=== PATIENT | female | born 1965 | race Caucasian/White ===

== ENCOUNTER 2022-04-14 09:41 | Observation (INO) ==
--- NOTE | 2022-03-09 16:17 | PAT Medication Instructions ---
Medication Instructions Date of Service March 09, 2022 Home Medications naproxen 250 mg tablet 250 mg PO BID PRN levothyroxine 50 mcg capsule 50 mcg PO QAM celecoxib 100 mg capsule (Celebrex) 200 mg PO QAM losartan 25 mg tablet 25 mg PO QAM metoprolol succinate 50 mg tablet,extended release 24 hr 50 mg PO QAM multivitamin 1 tab PO QAM ASK your surgeon for instructions naproxen 250 mg tablet 250 mg PO BID PRN celecoxib 100 mg capsule (Celebrex) 200 mg PO QAM DO NOT take the morning of surgery losartan 25 mg tablet 25 mg PO QAM multivitamin 1 tab PO QAM Take morning of surgery With a small sip of water, OTHERWISE NOTHING TO EAT OR DRINK AFTER MIDNIGHT: levothyroxine 50 mcg capsule 50 mcg PO QAM metoprolol succinate 50 mg tablet,extended release 24 hr 50 mg PO QAM Other Notes If you have any questions please call us at [phone] or [phone] or [phone] or [phone]
--- NOTE | 2022-03-18 10:39 | Anesthesiology Consultation ---
Date of Service March 18, 2022 Assessment & Plan (1) Encounter for pre-operative examination: - palpitation history discussed with Dr. Motley who advised cardiology pre-op evaluation prior to surgery. Surgeon's office and pt made aware. - PONV: scop patch Rx am DOS. - Outpatient joint assessment: Patient is currently scheduled for inpatient pathway. If re-evaluated pending system levels during current pandemic/surgeon requests outpatient pathway, patient is not acceptable candidate for outpatient joint program from anesthesia standpoint. - anesthesia record TKAs: Right 11/14/17: GA by pt request, LMA#4 + PNB. Left 18: SAB L4-L5 1 attempt + PNB. Pt denies any current or previous concerns with neuraxial anesthesia. Chart Review Chart Review: Pending: Refer to Additional Notes / Consult section and Patient seen in Pre Admission Testing Teaching & Discussion Pre-Anesthesia Teaching/Discussion Notes: Instructed NPO after midnight before surgery, except medications with 15 cc of water. Medication instructions provided according to the PAT guidelines. History Surgery Operation Date: 04/14/22 07:10 Proposed Procedures p Right Total Knee Revision - Oneil Covarrubias, Height/Weight Height: 5 ft 5 in Weight: 108.7 kg Allergies Allergy/AdvReac Type Severity Reaction Status Date / Time adhesive Allergy Mild REDNESS Verified 03/06/22 09:53 WITH SOME TAPE hyaluronic acid Allergy Mild Rash Verified 03/06/22 09:53 latex Allergy Mild Rash Verified 03/06/22 09:53 nickel AdvReac Intermediate skin Verified 03/06/22 10:17 irritation CELESTINE Allergy Severe SKIN Uncoded 03/06/22 10:17 SENSITIVITY/REDNESS AND IRRITATED Medications Home Medications Medication Instructions Recorded Confirmed Last Taken naproxen 250 mg tablet 250 mg PO BID PRN Pain 02/10/18 03/06/22 Unknown levothyroxine 50 mcg capsule 50 mcg PO QAM 07/31/20 03/06/22 11/25/21 05:15 celecoxib 100 mg capsule (Celebrex) 200 mg PO QAM 03/04/21 03/06/22 11/23/21 08:30 losartan 25 mg tablet 25 mg PO QAM 11/20/21 03/06/22 11/24/21 08:30 metoprolol succinate 50 mg 50 mg PO QAM 11/20/21 03/06/22 11/25/21 05:15 tablet,extended release 24 hr multivitamin 1 tab PO QAM 11/20/21 03/06/22 11/24/21 08:30 Past Medical History Medical History (Updated 03/18/22 @ 15:33 by Trina Hare PA-C) Chronic back pain follows with care program resident and takes celebrex Emphysema lung Per low dose lung cancer screening CT scan- pt chronic smoker Flor's disease Currently hypothyroid- on levothyroxine Hx of hepatitis HEPATITIS C>treated 10/2017 No current issues at this time Hypertension usual reading~150/90s per pt Sleep apnea CPAP-compliant Patient denies h/o stroke, seizures, heart attack, heart failure, DM, blood clots or blood transfusions. Exercise / Class Metabolic Activity II 4-5 Yardwork/Stairs/Walk up hill (denies CP or SOB with 1 FOS) Past Family History Family History Father Family history of diabetes mellitus Brother Family history of diabetes mellitus Daughter Family history of diabetes mellitus Other No family history of adverse response to anesthesia Past Surgical History Surgical History (Updated 03/18/22 @ 10:57 by Trina Hare PA-C) History of bilateral tubal ligation History of section X2 History of cholecystectomy 11/25/21: Grade 1 view, Edgar 2, ETT 7. History of colonoscopy History of hysterectomy History of nasal septoplasty X 2 History of tooth extraction History of total knee replacement Right 11/14/17: GA by pt request, LMA#4 + PNB. Left 03/19.18: SAB L4-L5 1 attempt + PNB. History of total shoulder replacement RIGHT 03/28/21 LMA#4 + PNB. Nausea and vomiting after administration of anesthetic agent requires scop patch per pt, denies adverse effects Past Anesthesia History No Hx of Anesthesia Complications and No Family Hx of Anesthesia Complications History of PONV History of PONV (requires scop patch, denies adverse effects with patch) and Hx of Motion Sickness Social History Smoking Status: Former smoker tobacco type: cigarettes Do You Dip or Chew Tobacco: No Smoking End Date: 09/29/21 Hx Alcohol Use: No Hx Substance Use: No Review of Systems Rare palpitations at rest, denies association to caffeine or stress; ongoing x several yrs; associated with shortness of breath; denies associated dizziness, lightheadedness and chest discomfort. Patient denies chest pain, shortness of breath, dyspnea on exertion, reflux, fever, chills, cough, wheezing, or palpitations. Physical Exam Vital Signs Vitals BP 154/94 (Pt states this is typical range, PCP aware) P 70 TEMP 98.2 SP02 96% on RA RESP 17 Physical Full cervical extension range of motion without pain TMD 3.5 finger breadths Mallampati Score 3 Dentition: intact, bridge upper; denies chipped or loose teeth, caps/crowns Lungs: normal respiratory effort. Clear throughout to auscultation, no adventitious breath sounds Cardiac: regular rate and rhythm, no murmurs noted Carotid arteries: negative bruit bilat Lab Results Anesthesia Preop Results Results Anesthesia Widget: WBC 7.33 K/ul (4.8-10.8) 03/18/22 Hgb 14.2 g/dl (12.0-16.0) 03/18/22 Hct 42.9 % (34.1-44.9) 03/18/22 Plt 201 K/uL (130-400) 03/18/22 Na 137 mmol/L (136-145) 03/18/22 K 4.9 mmol/L (3.5-5.1) 03/18/22 Cl 102 mmol/L (98-107) 03/18/22 CO2 29 mmol/L (21-32) 03/18/22 BUN 18 mg/dl (6-23) 03/18/22 Creat 0.77 mg/dl (0.6-1.2) 03/18/22 Glucose Level 93 mg/dl (70-99(Fasting)) 03/18/22 PT 10.8 Seconds (9.0-12.0) 03/18/22 PTT 29.7 Seconds (21.0-31.0) 03/18/22 INR 1.0 (0.9-1.1) 03/18/22 Blood Type O Negative 03/18/22 Antibody Screen NEGATIVE 03/18/22 Testing Electrocardiogram Date: 11/13/21 NSR, rate 64 bpm Other Testing Abdomen pelvis CT 12/07/21 1. Fluid-filled loops of small bowel throughout the abdomen and pelvis most characteristic of an ileus versus gastroenteritis. No evidence for obstruction. 2. No other evidence for acute intra-abdominal or pelvic abnormality. CT chest low dose 10/02/21 Few tiny sub 5 mm pulmonary nodules, unchanged Mild emphysema COVID-19 Risk Screen Screening Information COVID-19 Screen Date: 03/19/22 Exposure 21 Days Family/Household +COVID Last 21 Days: No Exposure 10 Days Any COVID Exposure Last 10 Days: No Symptoms Last 10 Days Experienced COVID Sx Last 10 Days: No + COVID 0-90 Days COVID + in Last 0-90 Days: No
--- NOTE | 2022-04-09 13:21 | History & Physical Report ---
Date of Service April 09, 2022 Assessment & Plan (1) Aseptic loosening of prosthetic knee: We will proceed with a revision right knee replacement surgery. Postoperatively she will be started on aspirin for DVT prophylaxis and kept overnight in the hospital for postop medical management. She plans to have the hospital set up home health upon discharge. History of Present Illness Chief Complaint: Aseptic loosening of the right knee. Primary Care Provider: Roxana Macias DO Karon is a pleasant 56-year-old female who I did a right knee replacement on in . Shortly thereafter I did a left knee replacement and a shoulder replacement. She has done very well with the other procedures, but her right knee continues to bother her. It bothered her ever since the surgery. She does have significant pain with it. X-rays have always looked okay. I sentherfor a bone scan of her right knee. The bone scan showed some possible loosening of the components. It seemed to involve more the tibial component. Sed rate, CRP, and white blood cell count were all normal. It did not appear to be infected clinically. After failing extensive conservative treatment, she has elected to proceed with a revision right knee replacement surgery. Allergies Allergy/AdvReac Type Severity Reaction Status Date / Time adhesive Allergy Mild REDNESS Verified 04/08/22 14:48 WITH SOME TAPE hyaluronic acid Allergy Mild Rash Verified 04/08/22 14:48 latex Allergy Mild Rash Verified 04/08/22 14:48 nickel AdvReac Intermediate skin Verified 04/08/22 14:48 irritation CELESTINE Allergy Severe SKIN Uncoded 04/08/22 14:48 SENSITIVITY/REDNESS AND IRRITATED Home Medications Medication Instructions Recorded Confirmed Type naproxen 250 mg tablet 250 mg PO BID PRN Pain 02/10/18 04/08/22 History levothyroxine 50 mcg capsule 50 mcg PO QAM 07/31/20 04/08/22 History celecoxib 100 mg capsule (Celebrex) 200 mg PO QAM 03/04/21 04/08/22 History metoprolol succinate 50 mg 50 mg PO QAM 11/20/21 04/08/22 History tablet,extended release 24 hr multivitamin 1 tab PO QAM 11/20/21 04/08/22 History losartan 100 1 tab PO DAILY #90 tabs 04/01/22 04/08/22 Rx mg-hydrochlorothiazide 25 mg tablet Past Med/Surg History Medical History Chronic back pain follows with health care recruiter and takes celebrex Emphysema lung Per low dose lung cancer screening CT scan- pt chronic smoker Flor's disease Currently hypothyroid- on levothyroxine Hx of hepatitis HEPATITIS C>treated 10/2017 No current issues at this time Hypertension usual reading~150/90s per pt Sleep apnea CPAP-compliant Surgical History History of bilateral tubal ligation History of section X2 History of cholecystectomy 11/25/21: Grade 1 view, Edgar 2, ETT 7. History of colonoscopy History of hysterectomy History of nasal septoplasty X 2 History of tooth extraction History of total knee replacement Right 11/14/17: GA by pt request, LMA#4 + PNB. Left 03/19.18: SAB L4-L5 1 attempt + PNB. History of total shoulder replacement RIGHT 03/28/21 LMA#4 + PNB. Nausea and vomiting after administration of anesthetic agent requires scop patch per pt, denies adverse effects Family History Father Family history of diabetes mellitus Brother Family history of diabetes mellitus Daughter Family history of diabetes mellitus Other No family history of adverse response to anesthesia Social History Smoking Status: Former smoker Second Hand Exposure: No; Hx Alcohol Use: No Hx Substance Use: No Preferred Language: Bengali Communication Ability: Effective Certified Orthotist Practice Manager Required: No Beliefs That Will Affect Care: None Current Living Situation: Alone current occupational status: disabled Feels Safe at Home: Yes Assistive Devices: Contacts, CPAP and Glasses Review of Systems All systems reviewed & are unremarkable except as noted in HPI & below. Physical Exam On physical examination of the right knee, she walks with an antalgic gait because of her knee. She has severe tenderness palpation around the knee, mostly along the tibial plateau. There is no effusion.. Constitutional WD/WN, vitals as above Eyes PERRL, conjunctivae normal, anicteric sclerae ENMT external ear and nose normal, oropharynx normal Neck trachea midline, no thyromegaly Respiratory normal respiratory effort, lungs clear to auscultation Cardiovascular RRR, no murmur, no edema Gastrointestinal (Abdomen) normal bowel sounds, soft, nontender, no hepatosplenomegaly Skin no rashes, warm and dry Psychiatric A+Ox3, euthymic affect Results & Data Results & Data Laboratory Results . Diagnostic Findings X-rays of the right knee show a well-placed total knee arthroplasty. I did not see any signs of loosening on the x-rays. Bone scan of the right knee does light up around the femoral and tibial prosthesis. Lights out more on the tibial side.. PG Care Time/CCT Total # of Minutes Spent Total Time Spent with Patient: Total time spent is greater than 50% in coordination of care (as documented) at patient's floor/unit and/or counseling patient: Coding Level of Care Code None Diagnoses Aseptic loosening of prosthetic knee T84.038A; Z96.659
[~2022-04-14 09:41] MED LIST: ACETAMINOPHEN 500 MG TAB PO SCH; BUPIVACAINE 0.25% 30 ML VIAL ONE; BUPIVACAINE 0.5 % 5 MG/1 ML PF 10ML VIAL ONE; DEXAMETHASONE SOD INJ 4 MG/ML VIAL ONE; EPINEPHrine INJ 1 MG/ML AMP ONE; FAMOTIDINE 20 MG TAB PO SCH; GABAPENTIN 600 MG DOSE PO SCH; LIDOCAINE 2% MPF LOCAL 5 ML VIAL INFIL ONE; LR 500ML BOLUS, THEN 15ML/HR IV SCH; LR 60ML/HR IV SCH; MIDAZOLAM HCL 1 MG/ML 2ML VIAL ONE; ORTHO JOINT MIX INFIL SCH; PROPOFOL IV EMULSION 10 MG/ML 20 ML VIAL IV ONE; Scopolamine 1 MG TDSY TD SCH; TRANEXAMIC ACID 1,000 MG **IV Intra-op IV SCH; TRANEXAMIC ACID 1,000 MG **IV Pre-op IV SCH; ceFAZolin 2000MG 2,000 MG/15 ML SYR IV SCH; dexAMETHasone 4 MG TAB PO SCH; fentaNYL citrate 100 MCG/2 ML VIAL ONE
--- NOTE | 2022-04-14 10:01 | History & Physical Bridge Note ---
Date of Service April 14, 2022 History & Physical Bridge Note I have examined the patient, reviewed the History & Physical and in the interval since the performance of the History & Physical I have noted the following changes of clinical significance: no changes noted
[2022-04-14] MEDS ORDERED: ORTHO JOINT ANESTHETIC ONE (10:33)
[2022-04-14] MEDS ORDERED: ONDANSETRON INJ 2 MG/ML 2 ML VIAL ONE (11:28)
[2022-04-14] MEDS ORDERED: DEXAMETHASONE SOD INJ 4 MG/ML VIAL ONE (11:28)
[2022-04-14] MEDS ORDERED: MIDAZOLAM HCL 1 MG/ML 2ML VIAL ONE (11:30)
[2022-04-14] MEDS ORDERED: ATROPINE SULFATE 0.1 MG/ML 10ML SYR IV PRN (11:38)
[2022-04-14] MEDS ORDERED: ONDANSETRON INJ 2 MG/ML 2 ML VIAL IV PRN ×2 (11:38→15:59)
[2022-04-14] MEDS ORDERED: ePHEDrine sulfate 50 MG/ML AMP IV PRN (11:38)
[2022-04-14] MEDS ORDERED: fentaNYL citrate 100 MCG/2 ML VIAL IV PRN (11:38)
[2022-04-14] MEDS ORDERED: PROMETHAZINE HCL 6.25 MG in SODIUM CHLORIDE 0.9% 50 ML IV PRN (11:38)
[2022-04-14] MEDS ORDERED: KETAMINE 50 MG/5 ML SYRINGE ONE (11:54)
[2022-04-14] MEDS ORDERED: PROPOFOL IV EMULSION 10 MG/ML 20 ML VIAL IV ONE ×3 (12:08→13:50)
--- NOTE | 2022-04-14 13:33 | Operative Report ---
PG Post Operative Report Pre & Post Diagnosis Operation Date: 04/14/22 11:10 Pre-Op Diagnosis: Aseptic Loosening Right knee tibia Component Post-Op Diagnosis: Aseptic loosening right knee tibial component I identified the patient and participated in the time-out.: Yes Procedure Operation Date: 04/14/22 11:10 Actual Procedures p Right Total Knee Tibial Revision with Polyethylene Exchange(Right) - Oneil Covarrubias DO Surgeon Oneil Covarrubias DO Director Of Business Services Oneil Azul PA-C Estimated Blood Loss 20 Findings Consistent with Post-Op Diagnosis Specimens None Indications Karon is a pleasant 56-year-old female who I did a right knee replacement on in 2018. Shortly thereafter I did a left knee replacement and a shoulder replacement. She has done very well with the other procedures, but her right knee continues to bother her. It bothered her ever since the surgery. She does have significant pain with it. X-rays have always looked okay. I sentherfor a bone scan of her right knee. The bone scan showed some possible loosening of the components. It seemed to involve more the tibial component. Sed rate, CRP, and white blood cell count were all normal. It did not appear to be infected clinically. After failing extensive conservative treatment, she has elected to proceed with a revision right knee replacement surgery. Description of Procedure On April 14, 2022 Karon arrived at [facility] for the above procedure. She was seen in the preoperative area and the operative extremity was then fine signed. She is given a preoperative antibiotic and a spinal anesthetic. She was taken back to the operative room and laid on the table in supine position. She was given basic sedation. The right knee was prepped and draped in sterile fashion. A timeout was done. The patient and the operative extremity was properly identified. A midline incision was made over the knee. Dissection was taken through the fascia. A medial parapatellar arthrotomy was used. The previous FiberWire sutures were removed. The patella was then slid laterally and the knee was flexed. The polyethylene insert was then removed. Time was then spent removing scar tissue from the medial lateral gutters. There was absolutely no evidence of infection. The tibial component was slightly tapped with a bone tamp. It was easily removed. The tibial component was grossly loose. There was absolutely no cement on the back of the tibial component. The femoral component was then impacted with a bone tamp. Significant time was spent ensuring that the femoral component was stable and it was. At this point the decision was made just to revise the tibial component. A saw was used to remove the cement from the tibial plateau. The cement in the canal was easily removed as well. Sequential reaming up to a size 15 reamer was done. Off that reamer the prox imal tibial resection guide was placed. A millimeter was resected off the proximal tibia. A 71 mm tibial trial was placed. It seemed to be a good fit. I measured a 5 mm offset. A trial 71 mm tibial tray with a 15 x 80 mm stem and a 5 mm offset was used. I then decided to add medial and lateral 10 mm augments. The trial was once again reconstructed in place. Some different polyethylene inserts were trialed and a size 12 seem to be the best fit. I was happy with the overall construct. The trials were then removed. The final size 71 mm tibia with a 5 mm offset and 15 x 80 mm splined stem was then put together on the back table. A medial and lateral 10 mm augment was also placed. The final construct was then cemented with Biomet cement. Once cement had hardened, several different polyethylene inserts were trialed and a size 12 PS plus was the best fit. The final poly was then snapped into place and the anterior bar was locked. At this time I saw that about 50% of the patella tendon was tearing away from the tibial tubercle. I decided to tack this down with Arthrex fiber tack sutures. 2 fiber tack sutures with suture tape were placed. The tapes were passed through the tendon and tied down. This gave good fixation of a portion of the patella tendon. The knee was brought through full range of motion and everything seems stable. There was no tension on the repair. The extensor mechanism was then closed with #1 Vicryl suture. A 3-minute Betadine lavage was done. Skin was then closed with 2-0 Vicryl and 2-0 nylon suture in a mattress fashion. She was then placed in a soft compressive dressing and a knee immobilizer. She was then taken to the postanesthesia care unit in stable condition. She tolerated the procedure well. Oneil Azul PA-C, was present for the entire procedure. He was critical for patient positioning, prepping, draping, retraction exposure, wound closure and application of sterile dressing. I attest to the content of the Intraoperative Record and any orders documented therein. Any exceptions are noted below.
--- NOTE | 2022-04-14 15:06 | XRay Report ---
TWO VIEWS RIGHT KNEE CLINICAL HISTORY: Postoperative examination. FINDINGS: AP and crosstable lateral portable views of the right knee are compared to study dated 12/07. A right knee arthroplasty is in near anatomic alignment. There is a long tibial stem. There wallace s been undersurface remodeling of the patella. No acute fracture is seen. There are expected postoper ative changes around the knee including soft tissue edema and subcutaneous gas. IMPRESSION: Expected postoperative changes status post right knee arthroplasty revision. No acute fra cture is seen. ACT 112: Negative or not required by law. Electronically signed by: Ramirez Dixon M.D. 04/14/2022 3:05 PM
[2022-04-14] MEDS ORDERED: bisacodyL 10 MG SUPP PR PRN (15:59)
[2022-04-14] MEDS ORDERED: NALOXONE HCL 0.4 MG/1 ML VIAL/CARP IV PRN (15:59)
[2022-04-14] MEDS ORDERED: MAGNESIUM HYDROXIDE SUSP 30 ML UDC PO PRN (15:59)
[2022-04-14] MEDS ORDERED: METOCLOPRAMIDE HCL INJ 5 MG/ML 2 ML VIAL IV PRN (15:59)
[2022-04-14] MEDS ORDERED: Scopolamine CHECK PATCH PLACEMENT SCH (16:00)
--- NOTE | 2022-04-14 16:04 | Anesthesiology Progress Note ---
Date of Service April 14, 2022 Anesthesia Post Procedure Vital Signs Vital Signs: Temp Pulse Pulse Resp BP Pulse Ox O2 Del Method 04/14/22 14:40 54 L 10 L 115/73 99 Oxymask 04/14/22 14:30 58 L 17 118/73 100 Oxymask 04/14/22 15:30 36.3 C L 65 17 126/92 98 Room Air 04/14/22 15:20 36.3 C L 59 L 19 102/59 L 97 Room Air 04/14/22 15:10 36.3 C L 58 L 14 107/75 97 Room Air 04/14/22 15:00 64 16 112/77 97 Room Air 04/14/22 14:50 58 L 17 109/76 100 Oxymask 04/14/22 14:20 67 14 114/74 99 Oxymask 04/14/22 14:14 36.4 C L 75 12 114/71 97 Oxymask 04/14/22 10:07 36.7 C 71 20 141/88 H 97 Room Air O2 Flow Rate 04/14/22 14:40 3 04/14/22 14:30 3 04/14/22 15:30 04/14/22 15:20 04/14/22 15:10 04/14/22 15:00 04/14/22 14:50 2 04/14/22 14:20 4 04/14/22 14:14 5 04/14/22 10:07 Transfer of Care Handoff Completed per policy Notes Mental Status: alert / awake / arousable Patient Amnestic to Procedure: Yes Nausea / Vomiting: adequately controlled Pain: adequately controlled Airway Patency, RR, SpO2: stable & adequate BP & HR: stable & adequate Hydration State: stable & adequate Neuraxial Anesthesia: was administered and sensory block is resolving Anesthetic Complications: no major complications apparent
[2022-04-14] MEDS: SODIUM CHLORIDE 0.9% 1000ML 1,000 ML IV SCH (16:07)
[2022-04-14] MEDS: KETOROLAC TROMETHAMINE 15 MG/ML VIAL IV SCH ×2 (16:59→22:44)
[2022-04-14] MEDS: oxyCODONE HCL IR 5 MG TAB (IMMEDIATE RELEASE) PO PRN (18:25)
[2022-04-14] MEDS: ceFAZolin 2000MG 2,000 MG/15 ML SYR IV SCH (20:03)
[2022-04-14] MEDS: ASPIRIN 81 MG ECTAB PO SCH (20:04)
[2022-04-14] MEDS: DOCUSATE SODIUM 100 MG CAP PO SCH (20:04)
[2022-04-14] MEDS: HYDROmorphone INJ 0.5 MG/0.5 ML SYR IV PRN (20:05)
[2022-04-14] MEDS ORDERED: SENNA 8.6 MG TAB PO SCH (21:00)
[2022-04-14] MEDS: ACETAMINOPHEN 500 MG TAB PO SCH (22:44)
[2022-04-15] MEDS: HYDROmorphone INJ 0.5 MG/0.5 ML SYR IV PRN ×2 (02:22→07:52)
[2022-04-15] MEDS: ceFAZolin 2000MG 2,000 MG/15 ML SYR IV SCH (03:39)
[2022-04-15] MEDS: KETOROLAC TROMETHAMINE 15 MG/ML VIAL IV SCH ×2 (06:18→11:08)
[2022-04-15] MEDS: ACETAMINOPHEN 500 MG TAB PO SCH (06:18)
[2022-04-15] MEDS ORDERED: LEVOTHYROXINE SODIUM 50 MCG TABLET PO SCH (06:30)
[2022-04-15] MEDS: SODIUM CHLORIDE 0.9% 1000ML 1,000 ML IV SCH (06:35)
--- NOTE | 2022-04-15 06:44 | Orthopedic Progress Note ---
Date of Service April 15, 2022 Assessment & Plan (1) Status post revision of total replacement of right knee: Overall she is doing very well. She is having some soreness in the right knee but that is to be expected. She will be in the knee immobilizer while ambulating for the next 6 weeks. Therapy may remove the immobilizer and bend her knee up to 45 degrees. We are waiting for the anterior wound to heal properly. I discussed all this with her and she understands. She is on aspirin for DVT prophylaxis and I encouraged ambulation while she is on the aspirin. I am concerned that if we put her on a stronger anticoagulant and aspirin, there may be wound complications. She can be discharged home later today. She will follow-up with orthopedics next week for a wound check. Natalie Brantley was seen and examined at bedside this morning. Overall she is doing very well. She is having a lot of soreness in the knee but she has been up and ambulating to the bathroom. She has no new complaints.. Review of Systems All systems reviewed & are unremarkable except as noted in HPI & below. Physical Exam On physical examination the right knee, the knee immobilizer is in place. She has active dorsiflexion plantarflexion of her right ankle. The dressing is to suction.. Results & Data Results & Data Laboratory Results . Diagnostic Findings Postoperative x-rays of the right knee show the prosthesis to be in anatomic alignment without any evidence of fracture, desiccation, or loosening. PG Care Time/CCT Total # of Minutes Spent Total Time Spent with Patient: Total time spent is greater than 50% in coordination of care (as documented) at patient's floor/unit and/or counseling patient: Coding Level of Care Code 62463 Post Operative Follow-Up Diagnoses Status post revision of total replacement of right knee Z96.651
--- NOTE | 2022-04-15 06:45 | Discharge Summary ---
Date of Service April 15, 2022 Admission HPI (Per Admitting) Karon is a pleasant 56-year-old female who I did a right knee replacement on in 2018. Shortly thereafter I did a left knee replacement and a shoulder replacement. She has done very well with the other procedures, but her right knee continues to bother her. It bothered her ever since the surgery. She does have significant pain with it. X-rays have always looked okay. I sentherfor a bone scan of her right knee. The bone scan showed some possible loosening of the components. It seemed to involve more the tibial component. Sed rate, CRP, and white blood cell count were all normal. It did not appear to be infected clinically. After failing extensive conservative treatment, she has elected to proceed with a revision right knee replacement surgery. Admission Exam (Per Admitting) On physical examination of the right knee, she walks with an antalgic gait because of her knee. She has severe tenderness palpation around the knee, mostly along the tibial plateau. There is no effusion.. Principal Diagnosis Same as "Discharge Diagnosis" noted below under Discharge Instructions. Discharge Exam On physical examination the right knee, the knee immobilizer is in place. She has active dorsiflexion plantarflexion of her right ankle. The dressing is to suction.. Discharge Data Procedures Performed Operation Date: 04/14/22 11:10 Actual Procedures p Right Total Knee Tibial Revision with Polyethylene Exchange(Right) - Oneil Covarrubias DO Ordered Studies 04/14/22 05:00 US - OR guided needle placemen Routine Hospital Course (1) Status post revision of total replacement of right knee: On April 14, 2022 Karon arrived at [facility] and underwent a revision right knee replacement. She had a spinal anesthetic. Postoperatively she was placed in a knee immobilizer because of the poor tissue quality of her skin. She was started on aspirin for DVT prophylaxis and transferred to the general orthopedic floors. Her hospital course was uneventful. On postop day #1 her vital signs were stable and her pain was well controlled. She was able to participate well with physical therapy doing ambulation and the knee immobilizer. She was then discharged home. She will follow-up with orthopedics next week for a wound check. PG Care Time/CCT Total # of Minutes Spent Total Time Spent with Patient: Total time spent is greater than 50% in coordination of care (as documented) at patient's floor/unit and/or counseling patient: Discharge Plan Discharge Items Patient Disposition: Home - Home Health Services Reason For Visit: Painful Right Total Knee Replacement Discharge Diagnosis: Right knee replacement Activity: Per Instructions section Non-emergency contact: Surgeon Call non-emergency contact if: your wound has increased redness and your wound has increased drainage Follow-up/Referrals: Roxana Macias DO [Primary Care Provider] - Diet: Regular Addtl Attending Provider Instructions: Activity and Therapy Recommendations: * If you are using [facility] then therapy will be provided at your home until they feel you have accomplished all of your goals. * If you are using [facility] then Physical Therapy will be provided until they feel you are ready to start Outpatient Physical Therapy. * If you are not using home therapy then Outpatient Physical Therapy should sta rt about 3-5 days from your day of surgery. Therapy will last about 6-10 weeks * Leave your knee in the knee immobilizer while ambulating. This will be for the first 6 weeks. * Physical therapy can do passive range of motion of your knee to 45 degrees. We will increase the range of motion depending on how the wound looks in the office. Medications: * Narcotic You will likely be sent home from the hospital with a prescription for the narcotic pain medication that worked best throughout your stay. * Aspirin Most patients will be required to take Aspirin 81mg twice a day for 6 weeks after surgery. This is obtained [id number] and a prescription is not necessary. * Other medications may be prescribed for specific circumstances. If you have any questions, please call the office at . * Resume previous home medications unless otherwise instructed TEDs/Elastic Stockings: The white elastic stockings help limit swelling and prevent blood clots from forming in your legs.~ The more you wear them, the more they work. Wear them for six weeks. Dressing Care: Leave the VAC dressing on for 7 days. After 7 days you may remove the dressing or the batteries will wear out. If the incision is not draining then you may leave the sutures open to air. If there is a little bit of drainage or if the sutures are getting stuck on your clothing then cover the incision with a dry dressing. The sutures will be removed at your 2 week follow-up appointment. Showering: You may shower with the VAC dressing in place. After the VAC dressing is removed you may shower with the sutures exposed as long as the incision is not draining. Let soapy water run over the sutures and pat them dry. Do not scrub or soak the incision. Things To Watch For: * Drainage from the incision site that occurs more than one week after your surgery. * Increased redness at the incision site. * Fever above 102 degrees Fahrenheit. * Unusual chest pain or shortness of breath. * Call [facility] at with any of the above problems Follow-Up Visit: Follow-up with Dr. Covarrubias's PA (Oneil Azul) on Wednesday, April 20. We will change the VAC dressing at that time. If you have any additional questions or concerns, Dr Covarrubias is in the office at the same time and will be available Please call the office to set up an appointment time that works for you Office Instructions: More detailed instructions as well as Frequently Asked Questions were provided in a folder by our office when you signed-up for surgery. Please review these instructions when you get home. If you have any further questions or concerns, please feel free to call the office at [phone] Pending Studies at Discharge: No Stand-Alone Forms: [facility] Medications and DC Order Prescriptions: New oxycodone-acetaminophen 5-325 mg tablet 1 tab PO Q6H PRN (Reason: pain) Qty: 30 0RF aspirin 81 mg Tablet,Delayed Release (Dr/Ec) 81 mg PO BID 42 Days Qty: 84 0RF Continued levothyroxine 50 mcg capsule 50 mcg PO QAM Label Comments: PT UNSURE IF DOSE CORRECT losartan-hydrochlorothiazide 100-25 mg tablet 1 tab PO DAILY Qty: 90 3RF naproxen 250 mg Tablet 250 mg PO BID PRN (Reason: Pain) celecoxib [Celebrex] 100 mg Capsule 200 mg PO QAM multivitamin Tablet 1 tab PO QAM metoprolol succinate 50 mg Tablet Extended Release 24 Hr 50 mg PO QAM Discharge Orders: Discharge Order (Routine); Ordered 04/15/22 Ordered By: Oneil Covarrubias Admission Data Admit Date/Time: 04/14/22 14:19 Attending Provider: Oneil Covarrubias Admit Provider: Oneil Covarrubias Primary Care Provider: Roxana Macias
[2022-04-15] MEDS: ASPIRIN 81 MG ECTAB PO SCH (07:58)
[2022-04-15] MEDS: DOCUSATE SODIUM 100 MG CAP PO SCH (07:59)
[2022-04-15] MEDS ORDERED: dexAMETHasone 4 MG TAB PO SCH (08:00)
[2022-04-15] MEDS ORDERED: METOPROLOL SUCC 50MG EXT REL TAB PO SCH (09:00)
[2022-04-15] MEDS ORDERED: LOSARTAN/HCTZ 50/12.5MG TAB PO SCH (09:00)
[2022-04-15] MEDS ORDERED: MULTIVITAMIN TAB PO SCH (09:00)
[2022-04-15] MEDS: oxyCODONE HCL IR 5 MG TAB (IMMEDIATE RELEASE) PO PRN (11:12)
== END 2022-04-15 11:59 | disposition home health service (06) ==
LOC: 3E 09:41 → ASU 09:41